=== PATIENT | female | born 1970 | race Native Hawaiian/Other Pacific Islander ===

== ENCOUNTER 2017-01-01 15:23 | Outpatient (CLI) | payer OTHER | END 2017-01-01 15:59 | disposition short-term general hospital (02) | LOC: AMB 15:23 | DX: M21.821 Other specified acquired deformities of right upper arm (principal); V86.65XA Passenger of 3- or 4- wheeled all-terrain vehicle (ATV) injured in nontraffic accident, initial encounter; Y92.89 Other specified places as the place of occurrence of the external cause | CPT/HCPCS: A0425; A0427 ==

== ENCOUNTER 2018-06-07 09:18 | Emergency (ER) | payer OTHER ==
[~2018-06-07] VITALS: Ht 172.7 cm; Wt 88.5 kg
[2018-06-07 10:08] LABS: PLATELET COUNT 355 K/uL (152-353)
[2018-06-07 10:23] LABS: POTASSIUM 4.8 mmol/L (3.6-5.2)
[2018-06-07 14:00] VITALS: BP 117/50; TEMP 98.1
== END 2018-06-07 14:00 | disposition home or self-care (01) ==
LOC: ED 09:18
PROVIDERS: Emergency Medicine
DX: R10.31 Right lower quadrant pain (principal); Z98.890 Other specified postprocedural states
CPT/HCPCS: 36415; 80053; 81000; 82150; 83690; 85027; 96374; 99283; J1885; Q9963

== ENCOUNTER 2019-12-03 09:03 | Emergency (ER) | payer OTHER ==
[~2019-12-03] VITALS: Ht 172.7 cm; Wt 94.3 kg
[2019-12-03 09:11] VITALS: TEMP 99.1
[2019-12-03 09:49] LABS: PLATELET COUNT 322 K/uL (152-353)
[2019-12-03 10:01] LABS: SODIUM 139 mmol/L (136-145)
[2019-12-03 10:04] LABS: PARTIAL THROMBOPLASTIN TIME 22.8 SECONDS (24.5-33.6)
[2019-12-03 10:45] VITALS: BP 135/67
== END 2019-12-03 10:55 | disposition home or self-care (01) ==
LOC: ED 09:03
PROVIDERS: Hospitalist
DX: R07.89 Other chest pain (principal); K21.9 Gastro-esophageal reflux disease without esophagitis
CPT/HCPCS: 80053; 82550; 82553; 83880; 84484; 85027; 85610; 85730; 93005; 99284

== ENCOUNTER 2022-04-17 19:20 | Emergency (ER) | payer OTHER ==
[~2022-04-17] VITALS: Ht 172.7 cm; Wt 95.3 kg
[2022-04-17 19:20] VITALS: TEMP 98.1
[2022-04-17 19:58] LABS: PLATELET COUNT 329 K/uL (152-353)
[2022-04-17 20:03] LABS: POTASSIUM 3.7 mmol/L (3.6-5.2)
[2022-04-17 20:21] LABS: PARTIAL THROMBOPLASTIN TIME 23.1 SECONDS (24.5-33.6)
[2022-04-17 22:20] VITALS: BP 146/89
== END 2022-04-17 22:20 | disposition home or self-care (01) ==
LOC: ED 19:20
PROVIDERS: Family Medicine
DX: M54.2 Cervicalgia (principal); R25.2 Cramp and spasm; R07.89 Other chest pain
CPT/HCPCS: 36415; 80053; 82550; 84484; 85027; 85379; 85610; 85730; 93005; 96374; 99284; J1885